=== PATIENT | female | born 1950 | race Caucasian/White ===

== ENCOUNTER 2019-03-06 06:23 | Day surgery (SDC) | payer OTHER ==
[2019-03-05 15:38] VITALS: BMI 27.8
[~2019-03-06 06:23] MED LIST: TOBRAMYCIN/DEXAMETHASONE OPHTH. OINTMENT 1 TUBE TP ONE
[2019-03-06] MEDS ORDERED: ACETAMINOPHEN 325 MG TABLET (FP) PO PRN (06:45)
[2019-03-06] MEDS ORDERED: TROPICAMIDE 1% OPHTH SOLN 15 ML BOTTLE ONE (07:06)
[2019-03-06] MEDS ORDERED: CHONDROITIN SU A/HYALUR SOD 1 KIT ONE (07:11)
[2019-03-06] MEDS ORDERED: TOBRAMYCIN/DEXAMETHASONE OPHTH. OINTMENT 1 TUBE ONE (07:19)
[2019-03-06] MEDS ORDERED: LIDOCAINE HCL/PF 2% SDV 5ML VIAL ONE (07:19)
[2019-03-06] MEDS ORDERED: TETRACAINE 0.5% OPHTH SOLN 2 ML BOTTLE ONE (07:19)
[2019-03-06] MEDS ORDERED: BUPIVACAINE HCL/PF 0.75% 10 ML VIAL ONE (07:19)
[2019-03-06] MEDS ORDERED: EPINEPHrine/PF 1 MG/1 ML (1:1,000) AMPULE ONE ×2 (07:19→08:44)
[2019-03-06] MEDS ORDERED: LIDOCAINE HCL/PF 1% SDV 5ML VIAL ONE (07:19)
[2019-03-06] MEDS: KETOROLAC TROMETHAMINE 0.5% EYE DROP 1 DROP DROPS OP SCH ×2 (07:23→07:41)
[2019-03-06] MEDS: CIPROFLOXACIN HCL 0.3% OPHTH 2.5ML BOTTLE OP SCH ×2 (07:23→07:41)
[2019-03-06] MEDS: PHENYLEPHRINE 2.5% OPHTH SOLN 15 ML BOTTLE OP SCH ×2 (07:23→07:41)
[2019-03-06] MEDS: TROPICAMIDE 1% OPHTH SOLN 15 ML BOTTLE OP SCH ×2 (07:24→07:41)
[2019-03-06] MEDS ORDERED: MIDAZOLAM HCL 2 MG/2 ML SINGLE DOSE VIAL ONE (08:46)
--- NOTE | 2019-03-06 08:47 | HP ---
- Patient Scheduled date of Surgery: 03/06/19 Scheduled Surgical Procedure: Phacoemulsification and cataract extraction with PCIOL Affected Eye: Right Chief Complaint (Indication for surgery): Decreased vision affecting ADLs - Ocular History Other Eye History: Other (none) Eye Medications: vigamox , prolensa Previous Eye Surgery: none - Medical History Illnesses: Hypertension, Hypercholesterolemia, Diabetes, Thyroid Disease Current Medications: Ambulatory Orders Levothyroxine [Synthroid -] 50 mcg PO DAILY 07/03/15 Losartan/Hydrochlorothiazide [Losartan-Hctz 100-25 mg Tab] 1 each PO DAILY 07/02 Sitagliptin Phosphate [Januvia] 100 mg PO DAILY 07/03/15 metFORMIN HCL [Metformin HCl] 500 mg PO BID 07/03/15 Aspirin [ASA -] 325 mg PO DAILY 03/05/19 Atorvastatin Ca [Lipitor] 20 mg PO HS 03/05/19 Glimepiride [Amaryl -] 4 mg PO BID 03/05/19 Allergies/Adverse Reactions: Allergies Allergy/AdvReac Type Severity Reaction Status Date / Time No Known Allergies Allergy Verified 03/06/19 07:01 Ocular Examination - Best Corrected Visual Acuity Distance: Right eye: 20/70 Distance: Left eye: 20/20 - External/Slit Lamp Examination Abnormalities: loss of pupillary ruff - Intraocular Pressure Intraocular Pressure - Right eye: 16 Intraocular Pressure-Left eye: 16 - Lens Lens: 3+ NS vacuoles - Vitreous/Retina Vitreous/Retina: C:D 0.35 m/v/p wnl - Special Examination M - Right eye: -3.00 M - Left eye: +3.00- 1.75 x 095 K - Right eye: 42.50/43.50 x 180 K - Left eye: 42/43.25 x180 AL - Right eye: 23.09 AL - Left eye: 23.17 IOL ba.5 IOL sulcus: 21.05 IOL AC: 19.0 - Impression Impression: Cataract Right Eye, Other (miosis) - Plan Plan: Phacoemulsification and cataract extraction - IOL Right eye Post-hospital care will be provided in office on: 03/07/19
--- NOTE | 2019-03-06 08:48 | HP ---
History & Physical Update - History History: No Change - Physical Physical: No Change - Assessment Assessment: No Change - Plan Plan: No Change (H and P reviewed by Dr. Flores from 02/12/19 no changes)
[2019-03-06] MEDS ORDERED: TETRACAINE 0.5% OPHTH SOLN 2 ML BOTTLE OD ONE (08:56)
[2019-03-06] MEDS ORDERED: POVIDONE-IODINE 5% OPHTHALMIC PREP 30 ML SOLUTION OD ONE (08:58)
[2019-03-06] MEDS ORDERED: LIDOCAINE HCL 1% PRESERVATIVE FREE - 30ML VIAL IO ONE (09:05)
[2019-03-06] MEDS ORDERED: BSS (NA/CA/MG/K) BALANCED SALT SOLUTION OPHTH SOLN 15 ML BOTTLE OD ONE (09:05)
[2019-03-06] MEDS ORDERED: CHONDROITIN SU A/HYALUR SOD 1 KIT IO ONE (09:05)
[2019-03-06] MEDS ORDERED: EPINEPHrine/PF 1 MG/1 ML (1:1,000) AMPULE SQ ONE ×2 (09:05→09:12)
--- NOTE | 2019-03-06 09:33 | OP ---
Ophthalmology Operative Note Pre-Operative Diagnosis: Cataract (and miosis) Affected Eye: Right Operation: Phacoemulsification and cataract extraction with PCIOL Findings: nuclear cataract right eye Post-Operative Diagnosis: Same as Pre-op Dough Sheeter: None Anesthesiologist: Elvia Merida Anesthesia: Topical Specimens Removed: none Estimated blood loss: < 1 cc Drains & Tubes with Location: none Operative Report Dictated: Yes
[2019-03-06 09:45] VITALS: TEMP 98.3
[2019-03-06 10:23] VITALS: BP 130/69; PULSE 66
--- NOTE | 2019-03-06 13:45 | OP ---
DATE OF OPERATION: DATE OF DICTATION: 03/06/2019 PREOPERATIVE DIAGNOSIS: Nuclear sclerotic cataract and myosis, right eye. POSTOPERATIVE DIAGNOSIS: Nuclear sclerotic cataract and myosis, right eye. PROCEDURE: Phacoemulsification and cataract extraction with insertion of posterior chamber intraocular lens, right eye. SURGEON: Juli Mendieta MD COMMERCIAL LOAN PROCESSOR: None. ANESTHESIA: Topical. ANESTHESIOLOGIST: TERE Hebert OPERATIVE PROCEDURE: The patient received Tetracaine eye drops and was gently sedated and prepped and draped in the usual sterile fashion so as to expose only the right eye. Ophthalmic Betadine was instilled into the inferior fornix and lashes were taped out of the surgical field. An eyelid speculum was placed into the right eye. Paracentesis was made in superior temporal clear cornea at the limbus. Then 0.5 mL of nonpreserved lidocaine 1% was injected into the anterior chamber, 1.5 mL of dilute epinephrine 1:10,000 was injected into the anterior chamber to improve pupillary dilation. Viscoelastic material was instilled into the anterior chamber via the paracentesis. A 2.4-mm keratome blade was then used to create the main incision in temporal clear cornea at the limbus. A continuous curvilinear capsulorhexis was performed using a cystotome and Utrata forceps. Hydrodissection of the lens cortex was performed using BSS on a cannula until the nucleus was noted to be freely rotating. The phacoemulsification tip was then inserted via the main wound and used to scope 2 perpendicular grooves into the lens nucleus. The nucleus was cracked into 4 quadrants. Each quadrant was lifted out of the capsule into the iris plane and individually phacoemulsified. The remaining cortical material was then aspirated using the irrigation/aspiration port. The capsular bag was inflated using ProVisc and a preloaded AcrySof lens model [id number] power +22.5 diopters was injected into the capsular bag. It was centered using a Sinskey hook. The residual viscoelastic material was removed from the anterior chamber using irrigation and aspiration. The wound edges were hydrated using BSS. The wound was tested for leakage and was found to be watertight. Tobradex ointment was placed in the eye, and the speculum was removed from the eye, and the eyelid was closed. A sterile dressing and shield were placed over the eye. The patient was transferred to the recovery room in stable condition, told to follow up in 1 day. JULI MENDIETA M.D. [id number]
== END 2019-03-06 10:10 | disposition home or self-care (01) ==
LOC: JASU-SURG 06:23
PROVIDERS: ATTEND Ophthalmology
PROC: 08RJ3JZ Replacement of Right Lens with Synthetic Substitute, Percutaneous Approach (ICD-10-PCS; principal; 2019-03-06 09:05)
DX: H25.11 Age-related nuclear cataract, right eye (principal); H57.03 Miosis; I10 Essential (primary) hypertension; E11.9 Type 2 diabetes mellitus without complications
CPT/HCPCS: 82962

== ENCOUNTER 2019-04-21 12:59 | Emergency (ER) | payer OTHER ==
[2019-04-21 13:07] VITALS: TEMP 98.2; BMI 27.8
--- NOTE | 2019-04-21 14:04 | PDOC ---
History of Present Illness - General Chief Complaint: Injury Stated Complaint: FALL Time Seen by Provider: 04/21/19 13:13 - History of Present Illness Initial Comments: 04/21/19 13:59 68-year-old female with a past medical history of TIA presents for evaluation after mechanical fall while walking on the sidewalk she tripped over a pipe. Hitting her face on the sidewalk. No loss of consciousness post injury nausea vomiting or visual changes. She does have slight frontal scalp pain where she had her head as well as nasal pain. Past History - Past Medical History Allergies/Adverse Reactions: Allergies Allergy/AdvReac Type Severity Reaction Status Date / Time No Known Allergies Allergy Verified 04/21/19 13:02 Home Medications: Ambulatory Orders Levothyroxine [Synthroid -] 50 mcg PO DAILY 07/03/15 Losartan/Hydrochlorothiazide [Losartan-Hctz 100-25 mg Tab] 1 each PO DAILY 07/02 Sitagliptin Phosphate [Januvia] 100 mg PO DAILY 07/03/15 metFORMIN HCL [Metformin HCl] 500 mg PO BID 07/03/15 Aspirin [ASA -] 325 mg PO DAILY 03/05/19 Atorvastatin Ca [Lipitor] 20 mg PO HS 03/05/19 Glimepiride [Amaryl -] 4 mg PO BID 03/05/19 Anemia: No Asthma: No Cancer: No Cardiac Disorders: No CVA: Yes (mild) COPD: No CHF: No Dementia: No Diabetes: Yes GI Disorders: No Disorders: No HTN: Yes Hypercholesterolemia: Yes Liver Disease: No Seizures: No Thyroid Disease: Yes - Surgical History Orthopedic Surgery: Yes ("LT HAND SURGERY") - Psycho Social/Smoking Cessation Hx Smoking History: Never smoked Have you smoked in the past 12 months: No Hx Alcohol Use: No Drug/Substance Use Hx: No Substance Use Type: None Hx Substance Use Treatment: No Review of Systems - Review of Systems HEENTM: No: Recent change in vision ABD/GI: No: Nausea, Vomiting Neurological: No: Headache, Unsteady Gait, Ataxia, Dizziness *Physical Exam - Vital Signs Last Vital Signs Temp Pulse Resp BP Pulse Ox 98.2 F 95 H 18 157/61 97 04/21/19 13:02 04/21/19 13:02 04/21/19 13:02 04/21/19 13:02 04/21/19 13:02 - Physical Exam 04/21/19 13:59 GENERAL: The patient is awake, alert, and fully oriented, in no acute distress. HEAD: Normal there is a frontal scalp hematoma with a superficial abrasion also abrasions about the nose. EYES: sclera anicteric, conjunctiva clear. ENT: Ears normal tympanic membranes normal oropharynx clear uvula midline NECK: Normal range of motion LUNGS: Breath sounds equal, clear to auscultation bilaterally. No wheezes, and no crackles. HEART: S1 and S2 without murmur, rub or gallop. ABDOMEN: Soft, nontender, normoactive bowel sounds. No guarding, no rebound. No masses. EXTREMITIES: Normal range of motion, no edema. No clubbing or cyanosis. No cords, erythema, or tenderness. NEUROLOGICAL: Cranial nerves II through XII grossly intact. Normal speech, normal gait. PSYCH: Normal mood, normal affect. SKIN: Warm, Dry, normal turgor, no rashes or lesions noted. ED Treatment Course - RADIOLOGY Radiology Studies Ordered: Category Date Time Status FACIAL BONES CT W/O CONTRAST [CT] Stat CT Scan 04/21/19 13:[address] WITHOUT CONTRAST [CT] Stat CT Scan 04/21/19 13:13 Completed Medical Decision Making - Medical Decision Making 04/21/19 14:04 CT head and facial bones are negative for acute pathology patient can follow-up with her primary care physician discussed use of soap and water and wound care Discharge - Discharge Information Problems reviewed: Yes Clinical Impression/Diagnosis: Fall, Facial abrasion Condition: Stable Disposition: HOME - Admission No - Follow up/Referral Referrals: Jassi Robertson MD [Staff Physician] - - Patient Discharge Instructions Additional Instructions: Return to the emergency room for worsening symptoms. Tylenol as directed for pain. Without fail please follow-up with your primary care physician in 1 to 2 days for further evaluation and treatment options and return to the emergency room should symptoms worsen. Please keep the abrasions on your face clean and dry. You may wash them gently with soap and water and pat them dry and leave them open to air. Do not apply any ointment such as bacitracin or Neosporin. - Post Discharge Activity
[2019-04-21] MEDS ORDERED: DIPHTH,PERTUSS(ACELL),TET 0.5 ML DISP.SYRIN IM ONE ×2 (14:12→14:13)
[2019-04-21 23:19] VITALS: BP 152/60; PULSE 78
== END 2019-04-21 17:40 | disposition home or self-care (01) ==
LOC: JERFT 12:59
PROC: 3E0234Z Introduction of Serum, Toxoid and Vaccine into Muscle, Percutaneous Approach (ICD-10-PCS; principal; 2019-04-21)
DX: S00.83XA Contusion of other part of head, initial encounter (principal); S00.81XA Abrasion of other part of head, initial encounter; W18.09XA Striking against other object with subsequent fall, initial encounter; Y93.01 Activity, walking, marching and hiking; Y92.480 Sidewalk as the place of occurrence of the external cause; Y99.8 Other external cause status; I10 Essential (primary) hypertension; E11.9 Type 2 diabetes mellitus without complications; Z79.84 Long term (current) use of oral hypoglycemic drugs; E03.9 Hypothyroidism, unspecified; E78.00 Pure hypercholesterolemia, unspecified; Z86.73 Personal history of transient ischemic attack (TIA), and cerebral infarction without residual deficits
CPT/HCPCS: 70450-TC; 70486-TC; 90715; 99281-25